=== PATIENT | female | born 1935 | race Caucasian/White ===

== ENCOUNTER 2017-05-28 11:37 | Emergency (ER) | payer OTHER ==
[~2017-05-28] VITALS: Ht 162.6 cm; Wt 60.9 kg
[~2017-05-28 11:37] MED LIST: ADVAIR 250/501 DISK IH; AGRYLIN0.5 MG PO; ALLOPURINOL100 MG PO; ALPHAGAN P100 DROP/5 BOTH EYES; ANAGRELIDE HCL0.5 MG PO; APRESOLINE100 MG PO; APRESOLINE50 MG PO; ARANESP100 MCG/0. IV; ASCORBIC ACID500 M3 PO; ASPIRIN81 M1 PO; ATIVAN0.5 MG PO; ATORVASTATIN CA80 MG PO; Ascorbic Acid PO; Aspirin E.C. PO; B-121000 MC2 PO; BIMATOPROST2.5 ML BOTH EYES; BIOTIN 5000MCG PO; BYSTOLIC10 MG PO; BYSTOLIC5 MG PO; CARDURA4 MG PO; CATAPRES0.2 MG PO; CLONIDINE HCL0.2 MG PO; COLCHICINE0.6 MG PO; COLCRYS0.6 MG PO; COMBIVENT INH14.7 GM IH; CYANOCOBALAM1000 MCG PO; DORZOLAMIDE HCL10 ML BOTH EYES; DOXAZOSIN MESYLA4 MG PO; ERGOCALCIF50000 UNIT PO; ESTER-C 1,0001 EACH PO; Epogen,Procrit; FEOSOL325 MG PO; FERROUS SULFAT325 M2 PO; FUROSEMIDE20 MG PO; Feosol PO; GLUCAGON EMERGEN1 MG PO; GLUCAGON1 MG IM; GLUCAGON1 MG PO; HYDRALAZINE HC100 M1 PO; HYDREA500 MG PO; HYDROCODONE-AP1 EAC8 PO; IRON55 MG PO; K-DUR10 MEQ PO; KENALOG,ARISTOC80 GM TP; L-LYSINE500 M1 PO; LASIX20 MG PO; LASIX40 MG PO; LEVEMIR FL100 UNIT/1 SC; LEVEMIR FL100 UNITS/ PO; LEVEMIR100 UNIT/2 SC; LIDODERM 5% P1 PATCH PO; LIPITOR80 MG PO; LOPRESSOR25 MG PO; LORAZEPAM1 MG PO; LORTAB 5-325 M1 EACH PO; LUMIGAN 0.50 DROP/2. BOTH EYES; LYSINE1000 MG PO; Lasix PO; MYRBETRIQ50 MG PO; NABI650T PO; NEXIUM40 MG PO; NIFEDIPINE ER30 M1 PO; NIFEDIPINE ER60 MG PO; NIFEDIPINE ER90 MG PO; NITROGLYCERIN0.4 MG PO; NITROSTAT0.4 MG SL; NORCO 5/3251 TABLET PO; NOVOLOG PE100 UNITS/ SC; NOVOLOG100 UNIT/3 SQ; OXYBUTYNIN CHLOR5 MG PO; PATADAY2.5 ML BOTH EYES; PLAVIX75 MG PO; PREDNISONE10 MG PO; PROAIR HFA8.5 GM IH; PROCARDIA XL30 MG PO; PROCRIT40000 UNI1 SC; PROTONIX40 MG PO; PROZAC20 MG PO; PROZAC40 MG PO; Procardia XL,Adalat PO; Proventil,Ventolin H IH; ROBITUSSIN DM118 ML PO; SPIRIVA1 INHALATI IH; ST. JOSEPH ASPI81 MG PO; TIZANIDINE HCL4 MG PO; TOBRADEX EYE O3.5 GM BOTH EYES; TRUSOPT 2%200 DROP/1 BOTH EYES; TYLENOL EXTRA500 MG PO; VESICARE10 MG PO; VIBRAMYCIN100 MG PO; VICODIN,LORT1 TABLET PO; VITAMIN C1000 MG PO; VITAMIN D250000 UNIT PO; VITAMIN D400 UNI1 PO; VITAMIN D400 UNI2 PO; VOLTAREN 1% GE100 GM TP; Vitamin B-12 PO; Vitamin D, Drisdol PO; WELCHOL625 MG PO; WELLBUTRIN XL150 MG PO; Wellbutrin SR PO; XALATAN 0.50 DROP/2. BOTH EYES; ZAROXOLYN2.5 MG PO; ZETIA10 MG PO; ZYLOPRIM100 MG PO; Zyloprim PO; [UNRECOGNIZED DRUG - CODE]
[2017-05-28 14:08] LABS: MEAN PLAT.VOLUME 9.9 uM^3 (9.5-12.4)
[2017-05-28 14:14] LABS: PROTHROMBIN TIME 11.7 SEC (10.2-12.9)
[2017-05-28 14:15] LABS: CHLORIDE 122 mEq/L (99-109); POTASSIUM 4.2 mEq/L (3.7-5.4); SODIUM 143 mEq/L (136-147)
[2017-05-28 14:17] LABS: GLUCOSE 109 mg/dL (70-99); PTT 28.6 SEC (25-37)
[2017-05-28 14:18] LABS: ANION GAP 6 MEQ/L (2-14)
[2017-05-28 14:19] LABS: TOTAL BILIRUBIN 0.5 mg/dL (0.0-1.0)
[2017-05-28 14:21] LABS: ALKALINE PHOSPHATASE 55 IU/L (3-129); GFR ESTIMATE (CALCULATED) 25 mL/min/
[2017-05-28 14:22] LABS: UREA NITROGEN (BUN) 58 mg/dL (9-23)
[2017-05-28 15:15] LABS: HEMATOCRIT 33.3 % (36.0-46.0); MCH 36.8 PG (29.0-34.0); MCHC 30.6 G/DL (30.0-36.0); MCV 120.2 FL (83-99); PLATELET CLUMPS PRESENT - PLATELET COUNT APPEARS ADQ.; RBC DIS.WIDTH-CV 19.4 % (11.8-14.6); RBC DIS.WIDTH-SD 87.8 % (39-53); RED BLOOD COUNT 2.77 M/uL (3.80-5.20); WHITE BLOOD COUNT 6.1 K/uL (4.1-10.2)
[2017-05-28 15:16] LABS: PLATELET COUNT 296 K/uL (156-360)
[2017-05-28 16:25] VITALS: BP 171/60
== END 2017-05-28 16:34 | disposition home or self-care (01) ==
LOC: EME 11:37
PROVIDERS: Nurse Practitioner Family
DX: S00.93XA Contusion of unspecified part of head, initial encounter (principal); S80.01XA Contusion of right knee, initial encounter; W01.198A Fall on same level from slipping, tripping and stumbling with subsequent striking against other object, initial encounter; Y92.009 Unspecified place in unspecified non-institutional (private) residence as the place of occurrence of the external cause; I13.0 Hypertensive heart and chronic kidney disease with heart failure and stage 1 through stage 4 chronic kidney disease, or unspecified chronic kidney disease; I50.9 Heart failure, unspecified; N18.9 Chronic kidney disease, unspecified; K21.9 Gastro-esophageal reflux disease without esophagitis; J44.9 Chronic obstructive pulmonary disease, unspecified; E11.9 Type 2 diabetes mellitus without complications; G25.81 Restless legs syndrome; F41.9 Anxiety disorder, unspecified; F32.9 Major depressive disorder, single episode, unspecified; I25.10 Atherosclerotic heart disease of native coronary artery without angina pectoris; I25.2 Old myocardial infarction; Z95.5 Presence of coronary angioplasty implant and graft; Z95.1 Presence of aortocoronary bypass graft; Z86.73 Personal history of transient ischemic attack (TIA), and cerebral infarction without residual deficits; Z96.653 Presence of artificial knee joint, bilateral; Z93.3 Colostomy status; Z79.4 Long term (current) use of insulin; Z79.82 Long term (current) use of aspirin; Z88.2 Allergy status to sulfonamides; Z88.8 Allergy status to other drugs, medicaments and biological substances
CPT/HCPCS: 70450; 73564; 80053; 85027; 85610; 85730; 99281; 99284

== ENCOUNTER 2017-09-14 13:07 | Inpatient (IN) | payer OTHER ==
[2017-09-14] VITALS (7 sets, daily range): BP systolic 133–179; BP diastolic 46–76
[~2017-09-14] VITALS: Ht 162.6 cm; Wt 69.1 kg
[~2017-09-14 13:07] MED LIST changes: -ASCORBIC ACID500 M3 PO
[2017-09-14 13:48] LABS: BASOPHIL (%) 0.2 % (0-1); EOSINOPHIL (%) 0.6 % (0-5); HEMATOCRIT 22.1 % (36.0-46.0); IMMATURE GRANULOCYTE (%) 0.8 % (0.0-0.7); LYMPHOCYTE COUNT 0.6 K/uL (1.0-2.8); MCHC 31.7 G/DL (30.0-36.0); MCV 120.1 FL (83-99); MONOCYTE (%) 20.1 % (3-12); NEUTROPHIL (%) 66.3 % (45-76); NEUTROPHIL COUNT 3.3 K/uL (1.8-6.4); PLATELET COUNT 344 K/uL (156-360); RBC DIS.WIDTH-CV 18.5 % (11.8-14.6); RBC DIS.WIDTH-SD 81.3 % (39-53); RED BLOOD COUNT 1.84 M/uL (3.80-5.20); WHITE BLOOD COUNT 4.9 K/uL (4.1-10.2)
[2017-09-14 13:53] LABS: CHLORIDE 109 mEq/L (99-109); SODIUM 137 mEq/L (136-147)
[2017-09-14 13:57] LABS: GLUCOSE 117 mg/dL (70-99)
[2017-09-14 13:58] LABS: CREATININE 2.1 mg/dL (0.6-1.3); GFR ESTIMATE (CALCULATED) 24 mL/min/
[2017-09-14 13:59] LABS: UREA NITROGEN (BUN) 32 mg/dL (9-23)
[2017-09-14 14:04] LABS: TROP-I INTERPRETATION NEGATIVE; TROPONIN-I 0.03 ng/mL (0.0-0.30)
[2017-09-14] MEDS ORDERED: FOSAMAX70 MG PO (15:56)
[2017-09-14] MEDS ORDERED: LIPITOR20 MG PO (15:59)
[2017-09-14] MEDS ORDERED: INCRUSE ELLI62.5 MCG IH (16:01)
[2017-09-14] MEDS ORDERED: BIMATOPROST2.5 ML BOTH EYES (16:06)
[2017-09-14] MEDS ORDERED: TRAZODONE HCL50 MG PO (16:13)
[2017-09-14] MEDS ORDERED: ERGOCALCIF50000 UNIT PO (16:17)
[2017-09-14] MEDS ORDERED: ZITHROMAX250 MG PO (16:20)
[2017-09-14] MEDS ORDERED: AGRYLIN0.5 MG PO (16:21)
[2017-09-14] MEDS ORDERED: GUAIFENESIN600 M1 PO (16:23)
[2017-09-14] MEDS ORDERED: PROBIOTIC1 EAC1 PO ×2 (16:26→22:45)
[2017-09-14 19:12] LABS: TROP-I INTERPRETATION NEGATIVE; TROPONIN-I 0.02 ng/mL (0.0-0.30)
[2017-09-14 20:33] LABS: APPEARANCE CLOUDY ((CLEAR)); BILIRUBIN NEGATIVE; BLOOD NEGATIVE; COLOR YELLOW ((YELLOW)); GLUCOSE (STRIP) NEGATIVE; KETONES NEGATIVE; LEUKOCYTES LARGE; NITRITE NEGATIVE; PROTEIN (STRIP) 100; SPECIFIC GRAVITY 1.006 (1.000-1.030); UROBILINOGEN 0.2 MG/DL (0.2-1.0)
[2017-09-14 22:00] LABS: RED BLOOD CELLS RARE /HPF (0-5); WHITE BLOOD CELLS TNTC /HPF (0-5)
[2017-09-14 22:04] LABS: EPITHELIAL CELLS 1+ /HPF
[2017-09-14 22:05] LABS: BACTERIA 2+ /HPF; MUCUS TRACE /LPF; UCUL ADDED? YES
[2017-09-14 22:41] LABS: HEMATOCRIT 33.1 % (36.0-46.0)
[2017-09-14 22:42] LABS: HEMOGLOBIN 10.6 G/DL (11.9-15.5); MCV 111.4 FL (83-99)
[2017-09-14] MEDS ORDERED: HUMALOG100 UNIT/2 SC (22:50)
[2017-09-14] MEDS ORDERED: ROBITUSSIN COU237 M2 PO (22:53)
[2017-09-14] MEDS ORDERED: NABI650T PO (22:54)
[2017-09-14] MEDS ORDERED: DUONEB 2.5-0.5 M3 ML AEROSOL (22:58)
[2017-09-14] MEDS ORDERED: DULCOLAX10 MG PR (23:01)
[2017-09-15] VITALS (7 sets, daily range): BP systolic 129–167; BP diastolic 63–81
[2017-09-15 00:48] LABS: TROP-I INTERPRETATION NEGATIVE; TROPONIN-I 0.02 ng/mL (0.0-0.30)
[2017-09-15 06:28] LABS: HEMATOCRIT 29.7 % (36.0-46.0); HEMOGLOBIN 9.3 G/DL (11.9-15.5); IMM.RETIC FRACTION 22.2 % (3-19); MCH 34.4 PG (29.0-34.0); MCHC 31.3 G/DL (30.0-36.0); NRBC (%) 0.3 /100 WBC (0-0); PLATELET COUNT 335 K/uL (156-360); RETIC HGB EQUIVALENT 23.6 (28-36); RETICULOCYTE COUNT 2.3 % (0.5-1.8); WHITE BLOOD COUNT 6.9 K/uL (4.1-10.2)
[2017-09-15 06:40] LABS: TROP-I INTERPRETATION NEGATIVE; TROPONIN-I 0.03 ng/mL (0.0-0.30)
[2017-09-15 07:03] LABS: ANISOCYTOSIS 3+; BASOPHIL (%) 0.3 % (0-1); EOSINOPHIL (%) 0 % (0-5); LYMPHOCYTE (%) 8.6 % (15-42); LYMPHOCYTE COUNT 0.6 K/uL (1.0-2.8); MACROCYTES 2+; MICROCYTOSIS 1+; MONOCYTE (%) 15.3 % (3-12); MONOCYTE COUNT 1.1 K/uL (0-0.8); NEUTROPHIL (%) 74.8 % (45-76); NEUTROPHIL COUNT 5.2 K/uL (1.8-6.4)
[2017-09-15 07:31] LABS: ALBUMIN 2.9 G/DL (3.2-4.8); ALKALINE PHOSPHATASE 57 IU/L (3-129); ALT (GPT) 4 IU/L (3-49); AST (GOT) 11 IU/L (2-34); CHLORIDE 107 MEQ/L (99-109); CREATININE 2.1 MG/DL (0.6-1.3); GFR ESTIMATE (CALCULATED) 24 mL/min/; GLUCOSE 105 mg/dL (70-99); POTASSIUM 3.8 MEQ/L (3.7-5.4); SODIUM 141 MEQ/L (136-147); TOTAL BILIRUBIN 0.8 MG/DL (0.0-1.0); TOTAL PROTEIN 5.5 G/DL (6.4-8.3); UREA NITROGEN (BUN) 32 mg/dL (9-23)
[2017-09-15 08:38] LABS: FERRITIN 827 NG/ML (10-291)
[2017-09-15 08:43] LABS: FOLIC ACID (FOLATE) 15.6 NG/ML (5.0-22.0)
[2017-09-16 03:29] VITALS: BP 154/60
[2017-09-16 05:40] LABS: HEMATOCRIT 29.9 % (36.0-46.0); HEMOGLOBIN 9.4 G/DL (11.9-15.5); MCH 34.9 PG (29.0-34.0); MCHC 31.4 G/DL (30.0-36.0); MCV 111.2 FL (83-99); PLATELET COUNT 273 K/uL (156-360); RBC DIS.WIDTH-CV 22.9 % (11.8-14.6); RED BLOOD COUNT 2.69 M/uL (3.80-5.20); WHITE BLOOD COUNT 4.3 K/uL (4.1-10.2)
[2017-09-16 06:48] LABS: CHLORIDE 110 MEQ/L (99-109); CREATININE 1.8 MG/DL (0.6-1.3); GFR ESTIMATE (CALCULATED) 29 mL/min/; GLUCOSE 89 mg/dL (70-99); POTASSIUM 3.4 MEQ/L (3.7-5.4); SODIUM 144 MEQ/L (136-147); UREA NITROGEN (BUN) 30 mg/dL (9-23)
[2017-09-16 07:55] VITALS: BP 161/72
[2017-09-16 11:33] VITALS: BP 156/67
[2017-09-16 16:16] VITALS: BP 143/71
[2017-09-16 18:46] VITALS: BP 132/61
[2017-09-17 00:11] VITALS: BP 154/68
[2017-09-17 04:17] VITALS: BP 151/67
[2017-09-17 05:50] LABS: HEMOGLOBIN 9.7 G/DL (11.9-15.5); MCHC 31.3 G/DL (30.0-36.0); MCV 111.9 FL (83-99); NRBC (%) 0.4 /100 WBC (0-0); PLATELET COUNT 239 K/uL (156-360); RBC DIS.WIDTH-CV 21.5 % (11.8-14.6); RBC DIS.WIDTH-SD 87.9 % (39-53); RED BLOOD COUNT 2.77 M/uL (3.80-5.20); WHITE BLOOD COUNT 5.6 K/uL (4.1-10.2)
[2017-09-17 06:16] LABS: CHLORIDE 113 MEQ/L (99-109); CREATININE 1.6 MG/DL (0.6-1.3); GFR ESTIMATE (CALCULATED) 33 mL/min/; GLUCOSE 101 mg/dL (70-99); POTASSIUM 3.7 MEQ/L (3.7-5.4); SODIUM 145 MEQ/L (136-147); UREA NITROGEN (BUN) 28 mg/dL (9-23)
[2017-09-17 07:15] VITALS: BP 165/72
[2017-09-17 11:30] VITALS: BP 138/90
[2017-09-17 11:33] VITALS: BP 126/60
[2017-09-17 13:09] LABS: STOOL OCCULT BLD 1ST SPECIMEN NEGATIVE
[2017-09-17] MEDS ORDERED: ROBITUSSIN100 MG/5 M PO (13:43)
[2017-09-17 16:00] VITALS: BP 153/70
== END 2017-09-17 17:11 | disposition home health service (06) | DRG 191 ==
LOC: EME 13:07 → EDOF 15:42 → 5WEST 15:42 → EDOF 15:42 → ENRESERV 15:57 → 5WEST 17:15
PROVIDERS: Emergency Medicine; Hospitalist; Internal Medicine Hematology & Oncology; Nurse Practitioner Family
DX: J44.1 Chronic obstructive pulmonary disease with (acute) exacerbation (principal); D64.9 Anemia, unspecified; I13.2 Hypertensive heart and chronic kidney disease with heart failure and with stage 5 chronic kidney disease, or end stage renal disease; E11.22 Type 2 diabetes mellitus with diabetic chronic kidney disease; E78.5 Hyperlipidemia, unspecified; C94.6 Myelodysplastic disease, not elsewhere classified; R09.89 Other specified symptoms and signs involving the circulatory and respiratory systems; N18.3 Chronic kidney disease, stage 3 (moderate); D47.1 Chronic myeloproliferative disease; I25.10 Atherosclerotic heart disease of native coronary artery without angina pectoris; J98.11 Atelectasis; G25.81 Restless legs syndrome; R09.02 Hypoxemia; Z79.4 Long term (current) use of insulin; K21.9 Gastro-esophageal reflux disease without esophagitis; Z96.653 Presence of artificial knee joint, bilateral; Z95.0 Presence of cardiac pacemaker; Z95.1 Presence of aortocoronary bypass graft; Z95.5 Presence of coronary angioplasty implant and graft; I25.2 Old myocardial infarction; Z79.82 Long term (current) use of aspirin; Z79.899 Other long term (current) drug therapy; Z86.73 Personal history of transient ischemic attack (TIA), and cerebral infarction without residual deficits
CPT/HCPCS: 71045; 71250; 74176; 80048; 80048 91; 80053; 81003; 82272; 82607; 82728; 82746; 82948; 83880; 84484; 85014; 85018; 85025; 85025 91; 85027; 85046; 86850; 86900; 86901; 86920; 87086; 93005; 93306; 94640; 94640 76; 94760; 94799; 97530 GP; 99202; 99281; 99285; G0378; G8987 GO CH; G8987 GO CI; J1940; P9016

== ENCOUNTER 2017-09-21 14:49 | Inpatient (IN) | payer OTHER ==
[~2017-09-21] VITALS: Ht 162.6 cm; Wt 64.5 kg
[~2017-09-21 14:49] MED LIST changes: +DULCOLAX10 MG PR; +DUONEB 2.5-0.5 M3 ML AEROSOL; +FOSAMAX70 MG PO; +GUAIFENESIN600 M1 PO; +HUMALOG100 UNIT/2 SC; +INCRUSE ELLI62.5 MCG IH; +LIPITOR20 MG PO; +PROBIOTIC1 EAC1 PO; +ROBITUSSIN COU237 M2 PO; +ROBITUSSIN100 MG/5 M PO; +TRAZODONE HCL50 MG PO; +ZITHROMAX250 MG PO
[2017-09-21 17:21] LABS: CARBON DIOXIDE (BICARBONATE) 26.1 MEQ/L (20-31)
[2017-09-21 17:33] LABS: ALBUMIN 3.7 g/dL (3.2-4.8); CHLORIDE 114 mEq/L (99-109); SODIUM 146 mEq/L (136-147)
[2017-09-21 17:36] LABS: GLUCOSE 222 mg/dL (70-99); POTASSIUM 5.1 mEq/L (3.7-5.4); TOTAL PROTEIN 7.3 g/dL (6.4-8.3)
[2017-09-21 17:37] LABS: HEMATOCRIT 37.8 % (36.0-46.0); HEMOGLOBIN 11.3 G/DL (11.9-15.5); MCH 34.8 PG (29.0-34.0); MCHC 29.9 G/DL (30.0-36.0); RBC DIS.WIDTH-CV 20.4 % (11.8-14.6); RBC DIS.WIDTH-SD 87.6 % (39-53); RED BLOOD COUNT 3.25 M/uL (3.80-5.20); WHITE BLOOD COUNT 17.8 K/uL (4.1-10.2)
[2017-09-21 17:38] LABS: TOTAL BILIRUBIN 0.4 mg/dL (0.0-1.0)
[2017-09-21 17:39] LABS: ALKALINE PHOSPHATASE 91 IU/L (3-129); GFR ESTIMATE (CALCULATED) 25 mL/min/
[2017-09-21 17:40] LABS: UREA NITROGEN (BUN) 32 mg/dL (9-23)
[2017-09-21 17:41] LABS: AST (GOT) 18 IU/L (2-34)
[2017-09-21 17:42] LABS: ALT (GPT) 8 IU/L (3-49)
[2017-09-21 17:46] LABS: TROP-I INTERPRETATION NEGATIVE; TROPONIN-I 0.01 ng/mL (0.0-0.30)
[2017-09-21 18:14] LABS: BASOPHIL (%) 0.4 % (0-1); BASOPHIL COUNT 0.1 K/uL (0-0.1); EOSINOPHIL (%) 0 % (0-5); IMMATURE GRANULOCYTE (%) 1.2 % (0.0-0.7); LYMPHOCYTE (%) 11.4 % (15-42); MONOCYTE (%) 10.1 % (3-12); MONOCYTE COUNT 1.8 K/uL (0-0.8); NEUTROPHIL (%) 76.9 % (45-76); NEUTROPHIL COUNT 13.7 K/uL (1.8-6.4); PLATELET CLUMPS PRESENT - PLATELET COUNT APPEARS INCREASED; PLATELET COUNT UNABLE TO REPORT K/uL (156-360)
[2017-09-21 18:17] LABS: BASE EXCESS -8.2 mEq/L (-3 to +3); BICARBONATE 20.7 mEq/L (22-26); CARBOXY HGB 1.8 % (0-5); PCO2 58 mm Hg (35-45); PO2 75 mm Hg (80-100); SITE RR; pH 7.16 (7.35-7.45)
[2017-09-21 18:18] LABS: COMMENTS - BLOOD GASES A+C+; DEVICE VENT; FI02 70 %; MECHANICAL RATE 18 resp/min; MODE AC; PEEP 5 CM/H20; TIDAL VOLUME 400 ML; TOTAL RESP RATE 30 resp/min
[2017-09-21 18:39] LABS: APPEARANCE TURBID ((CLEAR)); BILIRUBIN NEGATIVE; BLOOD NEGATIVE; COLOR AMBER ((YELLOW)); GLUCOSE (STRIP) 50; KETONES NEGATIVE; LEUKOCYTES LARGE; NITRITE NEGATIVE; PROTEIN (STRIP) 100; SPECIFIC GRAVITY 1.015 (1.000-1.030); UROBILINOGEN 0.2 MG/DL (0.2-1.0)
[2017-09-21 18:55] LABS: MCV 116.3 FL (83-99)
[2017-09-21 19:27] LABS: BACTERIA 3+ /HPF; EPITHELIAL CELLS 1+ /HPF; MUCUS NONE SEEN /LPF; RED BLOOD CELLS 0-5 /HPF (0-5); UCUL ADDED? YES; WHITE BLOOD CELLS TNTC /HPF (0-5)
[2017-09-21 23:28] VITALS: BP 148/80
[2017-09-22] VITALS (14 sets, daily range): BP systolic 122–147; BP diastolic 49–92
[2017-09-22] MEDS ORDERED: RANITIDINE HCL150 MG PO (00:59)
[2017-09-22] MEDS ORDERED: LORAZEPAM0.5 MG PO (01:00)
[2017-09-22] MEDS ORDERED: PROCRIT40000 UNI1 IV (01:05)
[2017-09-22] MEDS ORDERED: COLCRYS0.6 MG PO (01:24)
[2017-09-22 05:38] LABS: TROP-I INTERPRETATION NEGATIVE; TROPONIN-I 0.02 ng/mL (0.0-0.30)
[2017-09-22 05:45] LABS: BASE EXCESS -5.4 mEq/L (-3 to +3); BICARBONATE 18.8 mEq/L (22-26); CARBOXY HGB 1.5 % (0-5); METHEMOGLOBIN 1.7 % (0-1.5); PO2 64 mm Hg (80-100)
[2017-09-22 05:46] LABS: COMMENTS - BLOOD GASES C+; DEVICE VENT; FI02 30 %; MECHANICAL RATE 30 resp/min; MODE AC; PCO2 31 mm Hg (35-45); PEEP 5 CM/H20; SITE RR; TIDAL VOLUME 400 ML; TOTAL RESP RATE 30 resp/min; pH 7.39 (7.35-7.45)
[2017-09-22 06:03] LABS: BASOPHIL (%) 0.2 % (0-1); EOSINOPHIL (%) 0 % (0-5); HEMATOCRIT 35.5 % (36.0-46.0); HEMOGLOBIN 10.6 G/DL (11.9-15.5); IMMATURE GRANULOCYTE (%) 0.9 % (0.0-0.7); LYMPHOCYTE (%) 3.1 % (15-42); LYMPHOCYTE COUNT 0.3 K/uL (1.0-2.8); MCH 33.4 PG (29.0-34.0); MCHC 29.9 G/DL (30.0-36.0); MONOCYTE (%) 1.4 % (3-12); MONOCYTE COUNT 0.2 K/uL (0-0.8); NEUTROPHIL (%) 94.4 % (45-76); NEUTROPHIL COUNT 10.2 K/uL (1.8-6.4); RBC DIS.WIDTH-SD 83.9 % (39-53); RED BLOOD COUNT 3.17 M/uL (3.80-5.20); WHITE BLOOD COUNT 10.8 K/uL (4.1-10.2)
[2017-09-22 06:06] LABS: PLATELET COUNT 646 K/uL (156-360)
[2017-09-22 15:23] LABS: CHLORIDE 115 MEQ/L (99-109); GFR ESTIMATE (CALCULATED) 25 mL/min/; GLUCOSE 226 mg/dL (70-99); MAGNESIUM 1.8 mg/dl (1.3-2.7); PHOSPHORUS 4.4 mg/dL (2.5-4.9); POTASSIUM 4.7 MEQ/L (3.7-5.4); SODIUM 145 MEQ/L (136-147); UREA NITROGEN (BUN) 36 mg/dL (9-23)
[2017-09-23 07:32] VITALS: BP 132/63
[2017-09-23] MEDS ORDERED: MORPHINE CON20 MG/M1 SL (16:02)
[2017-09-23] MEDS ORDERED: ATIVAN0.5 MG PO (16:03)
[2017-09-23] MEDS ORDERED: HYOSCYAMINE0.125 M1 SL (16:04)
== END 2017-09-23 18:05 | disposition hospice, home (50) | DRG 871 ==
LOC: EME 14:49 → 4WEST 18:42 → EDOF 18:42 → ENRESERV 18:43 → 4WEST 23:01 → ENRESERV 09-22 17:50 → 5EAST 09-22 19:33
PROVIDERS: Emergency Medicine; Specialist
PROC: 5A1935Z Respiratory Ventilation, Less than 24 Consecutive Hours (ICD-10-PCS; principal; 2017-09-21)
PROC: 0BH17EZ Insertion of Endotracheal Airway into Trachea, Via Natural or Artificial Opening (ICD-10-PCS; 2017-09-21)
DX: A41.9 Sepsis, unspecified organism (principal); J96.01 Acute respiratory failure with hypoxia; J18.9 Pneumonia, unspecified organism; J44.0 Chronic obstructive pulmonary disease with (acute) lower respiratory infection; J44.1 Chronic obstructive pulmonary disease with (acute) exacerbation; D47.1 Chronic myeloproliferative disease; J90 Pleural effusion, not elsewhere classified; I13.0 Hypertensive heart and chronic kidney disease with heart failure and stage 1 through stage 4 chronic kidney disease, or unspecified chronic kidney disease; Z66 Do not resuscitate; E78.5 Hyperlipidemia, unspecified; J96.02 Acute respiratory failure with hypercapnia; Z51.5 Encounter for palliative care; Z93.3 Colostomy status; Z95.0 Presence of cardiac pacemaker; Z96.653 Presence of artificial knee joint, bilateral; Z95.5 Presence of coronary angioplasty implant and graft; Z95.1 Presence of aortocoronary bypass graft; Z90.49 Acquired absence of other specified parts of digestive tract; Z99.81 Dependence on supplemental oxygen; N18.9 Chronic kidney disease, unspecified; E11.22 Type 2 diabetes mellitus with diabetic chronic kidney disease; G25.81 Restless legs syndrome; I25.10 Atherosclerotic heart disease of native coronary artery without angina pectoris; I50.9 Heart failure, unspecified; K21.9 Gastro-esophageal reflux disease without esophagitis; D64.9 Anemia, unspecified; Z77.22 Contact with and (suspected) exposure to environmental tobacco smoke (acute) (chronic); Z87.891 Personal history of nicotine dependence; I25.2 Old myocardial infarction; Z79.51 Long term (current) use of inhaled steroids; Z79.4 Long term (current) use of insulin
CPT/HCPCS: 36600; 71045; 71046; 80048; 80053; 81003; 82803; 82948; 83605; 83735; 83880; 84100; 84484; 85025; 87040; 87070; 87106; 87205; 87502; 87641; 90832; 93005; 94002; 94003; 94640; 94640 76; 99202; 99281; 99285; A6214; J0330; J0456; J0692; J1644; J1940; J2060; J2704; J2930; J3010; J3370; J7030; S0028